=== PATIENT | male | born 1950 | race Caucasian/White ===

== ENCOUNTER 2018-05-17 11:08 | Inpatient (IN) | payer OTHER ==
[2018-05-09 13:15] VITALS: BMI 29.4
--- NOTE | 2018-05-17 12:34 | CONSULT ---
Consultation: REQUESTING PROVIDER: CONSULT REQUEST: We have been asked to medically evaluate this patient for ( specify). HISTORY OF PRESENT ILLNESS: REVIEW OF SYSTEMS: CONSTITUTIONAL: Absent: fever, chills, diaphoresis, generalized weakness, malaise, loss of appetite, weight change HEENT: Absent: rhinorrhea, nasal congestion, throat pain, throat swelling, difficulty swallowing, mouth swelling, ear pain, eye pain, visual changes CARDIOVASCULAR: Absent: chest pain, syncope, palpitations, irregular heart rate, lightheadedness , peripheral edema RESPIRATORY: Absent: cough, shortness of breath, dyspnea with exertion, orthopnea, wheezing, stridor, hemoptysis GASTROINTESTINAL: Absent: abdominal pain, abdominal distension, nausea, vomiting, diarrhea, constipation, melena, hematochezia GENITOURINARY: Absent: dysuria, frequency, urgency, hesitancy, hematuria, flank pain, genital pain MUSCULOSKELETAL: Absent: myalgia, arthralgia, joint swelling, back pain, neck pain SKIN: Absent: rash, itching, pallor HEMATOLOGIC/IMMUNOLOGIC: Absent: easy bleeding, easy bruising, lymphadenopathy, frequent infections ENDOCRINE: Absent: unexplained weight gain, unexplained weight loss, heat intolerance, cold intolerance NEUROLOGIC: Absent: headache, focal weakness or paresthesias, dizziness, unsteady gait, seizure, mental status changes, bladder or bowel incontinence PSYCHIATRIC: Absent: anxiety, depression, suicidal or homicidal ideation, hallucinations. PHYSICAL EXAMINATION Vital Signs - 24 hr 05/17/18 05/17/18 12:08 12:10 Temperature 97.6 F Pulse Rate 79 Respiratory 16 Rate Blood Pressure 130/79 O2 Sat by Pulse 96 Oximetry (%) GENERAL: Awake, alert, and fully oriented, in no acute distress. HEAD: Normal with no signs of trauma. EYES: Pupils equal, round and reactive to light, extraocular movements intact, sclera anicteric, conjunctiva clear. No lid lag. EARS, NOSE, THROAT: Ears normal, nares patent, oropharynx clear without exudates. Moist mucous membranes. NECK: Normal range of motion, supple without lymphadenopathy, JVD, or masses. LUNGS: Breath sounds equal, clear to auscultation bilaterally. No wheezes, and no crackles. No accessory muscle use. HEART: Regular rate and rhythm, normal S1 and S2 without murmur, rub or gallop. ABDOMEN: Soft, nontender, not distended, normoactive bowel sounds, no guarding, no rebound, no masses. No hepatomegaly or splenomegaly. MUSCULOSKELETAL: Normal range of motion at all joints. No bony deformities or tenderness. No CVA tenderness. UPPER EXTREMITIES: 2+ pulses, warm, well-perfused. No cyanosis. No clubbing. Cap refill <2 seconds. No peripheral edema. LOWER EXTREMITIES: 2+ pulses, warm, well-perfused. No calf tenderness. No peripheral edema. NEUROLOGICAL: Cranial nerves II-XII intact. Normal speech. Normal gait. PSYCHIATRIC: Cooperative. Good eye contact. Appropriate mood and affect. SKIN: Warm, dry, normal turgor, no rashes or lesions noted. Laboratory Results - last 24 hr 05/17/18 11:54 POC Glucometer 99 ASSESSMENT/PLAN: Dispo: We will continue to follow the patient. Thank you for this consultative opportunity.
[2018-05-17] MEDS ORDERED: ROPIVACAINE HCL 0.5% 30ML VIAL ONE (15:24)
[2018-05-17] MEDS ORDERED: MIDAZOLAM HCL 2 MG/2 ML SINGLE DOSE VIAL ONE (15:24)
[2018-05-17] MEDS ORDERED: EPINEPHrine/PF 1 MG/1 ML (1:1,000) AMPULE ONE (15:24)
[2018-05-17] MEDS ORDERED: DEXMEDETOMIDINE HCL 200 MCG/2 ML IVPB ONE (16:57)
[2018-05-17] MEDS ORDERED: VANCOMYCIN 1,000 MG VIAL (RESTRICTED TO ID ONLY) ONE (16:57)
[2018-05-17] MEDS ORDERED: ePHEDrine SULFATE 50 MG/1 ML AMPULE ONE (17:42)
[2018-05-17] MEDS ORDERED: PROPOFOL 20 ML ONE ×3 (17:42→19:28)
[2018-05-17] MEDS ORDERED: SUCCINYLCHOLINE CHLORIDE 200 MG/10 ML VIAL ONE (17:42)
[2018-05-17] MEDS ORDERED: oxyCODONE HCL 5 MG TABLET PO PRN ×5 (18:59→21:04)
[2018-05-17] MEDS ORDERED: ONDANSETRON 4 MG/2 ML VIAL IVPUSH PRN ×2 (18:59→20:05)
[2018-05-17] MEDS ORDERED: LACTATED RINGERS SOLUTION 1,000 ML IV SCH ×2 (19:00→20:15)
[2018-05-17] MEDS ORDERED: ceFAZolin SODIUM 1 GM VIAL ONE ×3 (19:04→19:28)
[2018-05-17] MEDS ORDERED: TRANEXAMIC ACID 1000 MG/10 ML VIAL ONE ×2 (19:04→20:04)
[2018-05-17] MEDS ORDERED: DEXAMETHASONE SOD PHOSPHATE 4 MG/1 ML VIAL ONE ×2 (19:04→20:04)
--- NOTE | 2018-05-17 19:29 | CONSULT ---
Consult Consult Specialty:: Hospital Medicine Referred by:: Dr. Goodman Reason for Consultation:: Medical Management - History of Present Illness History of Present Illness: This is a 68 y/o man with a PMHx of DM, HTN, OA. Here for elective surgery s/p R - THR POD#0. Patient is AAOx3, patient reports - History Source History Provided By: Patient Limitations to Obtaining History: No Limitations - Past Medical History Cardio/Vascular: Yes: HTN Endocrine: Yes: Diabetes Mellitus - Past Surgical History Additional Surgical History: Rhinoplasty. Nasal Polyps removed - Alcohol/Substance Use Hx Alcohol Use: No History of Substance Use: reports: None - Smoking History Smoking history: Never smoked - Social History Usual Living Arrangement: With Spouse ADL: Independent History of Recent Travel: No Home Medications - Allergies Allergies/Adverse Reactions: Allergies Allergy/AdvReac Type Severity Reaction Status Date / Time shellfish derived Allergy Verified 05/17/18 12:03 - Home Medications Home Medications: Ambulatory Orders Atorvastatin Ca [Lipitor] 20 mg PO HS 05/09/18 Enalapril Maleate [Vasotec] 20 mg PO DAILY 05/09/18 Gabapentin 300 mg PO TID 05/09/18 Hydrochlorothiazide [Hctz -] 25 mg PO DAILY 05/09/18 Insulin (Novolog 70/30) [Novolog Mix 70/30 Vial] 0 ml SQ TID 05/09/18 Insulin Glargine,Hum.rec.anlog [Basaglar Kwikpen U-100] 60 unit SQ DAILY Tamsulosin HCl [Flomax] 0.4 mg PO HS 05/09/18 Review of Systems - Review of Systems Musculoskeletal: reports: Joint Pain Physical Exam Vital Signs: Vital Signs Temperature 97.6 F 05/17/18 12:08 Pulse Rate 79 05/17/18 12:08 Respiratory Rate 16 05/17/18 12:08 Blood Pressure 130/79 05/17/18 12:08 O2 Sat by Pulse Oximetry (%) 96 05/17/18 12:10 Constitutional: Yes: Well Nourished, No Distress, Calm Eyes: Yes: WNL, Conjunctiva Clear, EOM Intact, PERRL HENT: Yes: WNL, Atraumatic, Normocephalic Neck: Yes: WNL, Supple, Trachea Midline Cardiovascular: Yes: WNL, Regular Rate and Rhythm, S1, S2 Respiratory: Yes: WNL, Regular, CTA Bilaterally Gastrointestinal: Yes: WNL, Normal Bowel Sounds, Soft, Abdomen, Obese Musculoskeletal: Yes: Other (right hip pain) Edema: No Peripheral Pulses WNL: Yes Neurological: Yes: WNL, Alert, Oriented, Cran Nerves II-XII Intact ...Motor Strength: LUE, LLE, RUE Psychiatric: Yes: WNL, Alert, Oriented Problem List - Problems (1) Status post right hip replacement Code(s): Z96.641 - PRESENCE OF RIGHT ARTIFICIAL HIP JOINT
[2018-05-17] MEDS ORDERED: BENZOIN/ALOE VERA/STORAX/TOLU 58 ML BOTTLE ONE (19:32)
[2018-05-17] MEDS ORDERED: ONDANSETRON 4 MG/2 ML VIAL ONE (20:04)
[2018-05-17] MEDS ORDERED: MAGNESIUM HYDROX 2400MG/30ML ORAL SUSPENSION 30 ML CUP PO PRN (20:05)
[2018-05-17] MEDS ORDERED: MAG HYDROX/AL HYDROX/SIMETH 30 ML UNIT-DOSE CUP PO PRN (20:05)
--- NOTE | 2018-05-17 20:15 | PN ---
Progress Note (short form) - Note Progress Note: S/P R TKA POD #0 - Pain control. -DVT PPx: -Chemical: ASA 81 mg po BID x 6 weeks -Mechanical: KRISTAL's, SCD's -Incentive Spirometry. -PT/OT/Rehab, OOB. -WBAT RLE. -f/u am labs. -f/u post-op TOV. -Care per medical hospitalist team. -Discharge planning: f/u [facility] [place] office addictions therapist for appointment: -Will follow. Darian Goodman MD (Orthopaedic Surgery)
--- NOTE | 2018-05-17 20:17 | OP ---
Operative Note - Note: Operative Date: 05/17/18 Pre-Operative Diagnosis: Primary osteoarthritis right hip Operation: Right total hip replacement via direct superior approach Implants: Cecil. Cup - Trident II-Tritanium, 52mm, cluster. Poly - 32mm, neutral. Stem - Accolade II, #3, 127 degree NSA, high offset. Head - Biolox/ Delta Ceramic, 32mm diameter Surgeon: Christiano Goodman Plugger Worker: Darian Goodman Anesthesiologist/WEDDING PLANNER: Chato Yun Anesthesia: Spinal Specimens Removed: Right femoral head Estimated Blood Loss (mls): 75 Fluid Volume Replaced (mls): 1,000 (Crystalloid) Operative Report Dictated: Yes
--- NOTE | 2018-05-17 20:43 | OP ---
Date of Operation: 05/17/2018 Surgeon: Christiano Goodman M.D. Enrollment Specialist: Darian Goodman M.D., Kari Cortes P.A.-C. Pre-Operative Diagnosis: Primary osteoarthritis right hip. Post-Operative Diagnosis: Primary osteoarthritis right hip. Surgical Procedure: Right total hip replacement via Direct Suprior approach. Anaesthesia: Spinal, block. Position: Left lateral decubitus. Incision: Direct superior. Estimated Blood Loss: 75cc. Intravenous Fluid: 1L crystalloid. Specimens: Right femoral head. Drains: None. Complications: None. Urine output: None. Bacteriology: None. Transfusions: None. Closure: #1 Vicryl, 3-0 Biosyn. Indications: The patient was indicated for a right total hip replacement in order to facilitate improved motion and mobilization, and to prevent the complications associated with a sedentary lifestyle. The patient was identified in the holding area by his armband. A long discussion was held with the patient (in the presence of the patients relatives ) regarding the risks, benefits and alternatives of the above named procedure. Risks include but are not limited to: pain, bleeding, infection, damage to surrounding structures (including nerves, blood vessels, skin, ligaments, tendons and bone), wound complications, failure of hardware/implants/reduction, need for further surgery, blood clots, myocardial infarction, pulmonary embolism , cerebrovascular insult, anaesthesia complications, compartment syndrome, limb loss, limp, loss of function, and . Benefits as mentioned above. Alternatives include no surgery. All questions were answered. The patient understood and agreed to the procedure. Informed consent was obtained, witnessed and verified. The patients correct operative limb - that is the right lower extremity - was marked, and the patient was taken to the operating room after being seen by the anesthesia and nursing staff. Procedure: The patient was brought into the operating room, placed on the OR table and secured with a safety strap. Consent and the operative site were again verified with the patient and nursing and anaesthesia staff. Anaesthesia, IV antibiotics, and TXA were then administered without complication. A time out was done, led by me the attending surgeon. The patient was gently turned into the left lateral decubitus position. An axillary roll was placed. A Stulberg hip positioner with well-padded bolsters was used to secure the patient in the lateral decubitus position. The down arm was placed on a well-padded arm board. The up arm was brought across the patients body and placed on 2 pillows. Foam egg crates were placed under the down knee and ankle, and bony prominences were well padded. The operative site was then prepped and draped in the standard sterile fashion. Time out was again done and the case began. Operation: A standard Direct Superior surgical approach was utilized to access the hip joint. With a #10 blade, a skin incision was taken from the posterior-superior corner of the greater trochanter in a posterior-superior direction. This was approximately 10cm in length. Electrocautery was utilized to carry the deep dissection down to the level of the gluteus mic fascia. Hemostasis was assured using electrocautery (bipolar and unipolar). The gluteus mic fascia was incised, and the fibers of gluteus mic were in line with the trajectory of the incision. This confirmed the accuracy of our planned incision based on palpated landmarks and surface anatomy. A Miranda elevator was used to split the distal fibers of gluteus mic, in line with the fibers, just proximal to their insertion into the iliotibial band. Great care was taken not to incise the iliotibial band. Gluteus mic fibers were split proximally using the Miranda elevator until reaching the apex of the wound. Again, hemostasis was assured. The randy-capsular fat pad was exposed utilizing curved handle bar retractors. The arndy-capsular fat pad was excised off the inferior border of the gluteus medius muscle belly, exposing the insertion of the hip short external rotator muscle group. The piriformis tendon was identified and found to be mobile. It was thus retracted superiorly. The superior gemellus muscle was located, found to be robust, and freed from adhesions to the capsule using a 90-degree clamp. This muscle's tendon was then released from its insertion using electrocautery. The tendon was friable and the muscle retracted after release. The sciatic nerve was identified and protected throughout the case. With the superior gemellus muscle released away from its insertion, the hip joint capsule was visualized. Electrocautery was used to perform a capsulotomy and synovial joint fluid was aspirated. Next, the superior leaflet of the capsule was elevated using a Miranda elevator to create separation from the underlying labrum and also to create a plane for later placement of a supra- acetabular retractor. The labrum was excised using electrocautery. The hip was then gently dislocated. A standard femoral neck cut was made using an oscillating saw. A 3/4" osteotome was delivered into the femoral head using mallet strikes. The femoral head was then removed. Anterior, inferior, and supra -acetabular retractors were placed to expose the acetabulum. The pulvinar was excised using electrocautery. Even sized reamers were used to prepare the acetabular bone bed. Healthy blushes of bleeding were observed from the reamed cancellous bone bed. Next, a size 52mm [place] Trident II-Tritanium cup was impacted into position, achieving excellent press-fit. A size 32mm neutral polyethylene liner was then impacted into the cup. Excellent placement of the polyethylene liner, and excellent press fit of the cup were confirmed. Next, attention was turned to femoral preparation. The anterior and supra-acetabular retractors were removed. The cut femoral neck was then exposed using the inferior acetabular retractor around the calcar, and a straight 90-degree retractor to retract gluteus medius. The box-cutter osteotome was used with a mallet to removed bone from the lateral femoral neck. An opening reamer was delivered by hand to find the femoral canal. A lateralizing reamer was used with power to lateralize the proximal entry into the canal, so as to avoid placing the stem into varus. The femoral bone bed was then prepared using broaches with gentle mallet strikes. The tibia was used as a goniometer with which to dial in approximately 5 degrees of stem anteversion. Trial components were assembled and the hip was reduced. The hip was taken through a full range of motion and proved stable throughout this range of motion, including at the extremes of positions of compromised. All trial femoral components were removed. Another 1g of IV Ancef was administered so that the bone bed would be rich with antibiotic at the time of seating of the femoral implant. A [place] Accolade II (127-degree NSA, high offset) #3 stem was then implanted using gentle mallet strikes, diligently matching the prepared degree of stem anteversion. With the stem fully seated, a 32mm diameter, standard length ceramic/Biolox femoral head was then selected and implanted. The hip was once again reduced, and taken through a full range of motion. Stability was once again assured. Leg length was satisfactory. The wounds were copiously irrigated , as they had been regularly throughout the case so as to keep the retracted tissues wet, and in order to flush out wound debris. The capsule was primarily repaired using #1 Vicryl sutures in simple interrupted fashion. The tagged piriformis tendon was released and tied to the posterior-lateral corner of the greater trochanter. The remaining wounds were again irrigated. Hemostasis was assured and the wound was closed primarily using #1 Vicryl sutures. A 3-0 Biosyn suture was used to perform a subcuticular wound closure. A sterile, compressive dressing was applied. The sponge and needle counts were correct at the end of the case and the attending was present and scrubbed throughout the case. The patient was then transferred into a supine position and onto the hospital bed. A standard AP-pelvis x-ray was taken, demonstrating good overall alignment with a well reduced, congruent hip. There was no evidence of subsidence, loosening, or randy-prosthetic fracture. The patient was then was then transferred to the recovery room without incident/complications and in stable condition, having tolerated the procedure well. MD BRENNA Brooks/[id number] MTDD
[2018-05-17] MEDS: INSULIN SLIDING SCALE (NOVOLOG) 1 VIAL SQ SCH (20:59)
[2018-05-17] MEDS: ACETAMINOPHEN 325 MG TABLET (FP) PO SCH (20:59)
[2018-05-17] MEDS ORDERED: GABAPENTIN 300 MG CAPSULE (FP) PO SCH (22:00)
[2018-05-17] MEDS: TAMSULOSIN HCL 0.4 MG CAP PO SCH (22:02)
[2018-05-17] MEDS: ATORVASTATIN CA 20 MG TABLET (FP) PO SCH (22:02)
[2018-05-17] MEDS: ASPIRIN COATED 81 MG TABLET.EC PO SCH (22:02)
[2018-05-17] MEDS: oxyCODONE HCL 10 MG SUSTAINED ACTING TABLET PO SCH (22:02)
[2018-05-17] MEDS: SENNOSIDES/DOCUSATE COMBO (SENNA PLUS) TABLET (UD) PO SCH (22:02)
[2018-05-17] MEDS: GABAPENTIN 300 MG CAPSULE (FP) PO SCH (22:03)
[2018-05-17] MEDS: oxyCODONE HCL 5 MG TABLET PO PRN (23:11)
[2018-05-18] MEDS: ACETAMINOPHEN 325 MG TABLET (FP) PO SCH ×3 (01:27→14:10)
[2018-05-18] MEDS: CEFAZOLIN 2 GM/D5W 2 GM/50 ML ML IVPB SCH ×2 (02:23→11:00)
[2018-05-18] MEDS: oxyCODONE HCL 5 MG TABLET PO PRN ×2 (02:38→14:10)
[2018-05-18] MEDS: INSULIN (LEVEMIR) 100 UNITS/ML UNITS SQ SCH (06:10)
[2018-05-18] MEDS: GABAPENTIN 300 MG CAPSULE (FP) PO SCH ×3 (06:10→21:16)
[2018-05-18] MEDS: INSULIN SLIDING SCALE (NOVOLOG) 1 VIAL SQ SCH ×3 (07:27→18:27)
[2018-05-18 08:16] LABS: HEMOGLOBIN 11.5 GM/dl (11.7-16.9); MCH 29.1 pg (25.7-33.7); MCHC 33.7 g/dl (32.0-35.9); MEAN CELL VOLUME 86.2 fl (80-96); PLATELET COUNT 227 K/MM3 (134-434); RBC 3.95 M/mm3 (4.00-5.60); RDW 12.8 % (11.9-15.9); WHITE BLOOD COUNT 10.3 K/mm3 (4.0-10.8)
--- NOTE | 2018-05-18 08:24 | PN ---
Progress Note (short form) - Note Progress Note: POD #1 s/p right THR. Doing well. sitting in chair at bedside. C/o mild incisional tenderness. Adequate pain control with medications as ordered. No acute events over past 24 hours per RN notes. Tolerating PO diet. Voiding spontaneously. Using his incentive spirometer as directed. Denies n/v/f/c, CP, palpitations, SOB or BEJARANO. Last Vital Signs Temp Pulse Resp BP Pulse Ox 98.6 F 95 H 18 119/64 91 L 05/18/ 04:00 /10/27 04:00 05/18/18 04:00 02 04:00 05/18/18 04:00 CBC, BMP 05/18/18 07:15 Gen: nad LE: Right hip dressing c/d/i. No hematoma. LE with SCDs bilat/soft/non-tender. No edema . Problem List - Problems (1) Status post right hip replacement Assessment/Plan: Assessment/Plan: S/P R FERN POD #1 - Pain control. -DVT PPx: -Chemical: ASA 81 mg po BID x 6 weeks -Mechanical: KRISTAL's, SCD's -Incentive Spirometry. -PT/OT/Rehab, OOB. -WBAT RLE. -No Posterior hip precautions. -f/u am labs. -Care per medical hospitalist team. -Discharge planning: f/u [facility] [place] office onCall for appointment : Above plan discussed with Dr. Christiano Goodman and agrees Code(s): Z96.641 - PRESENCE OF RIGHT ARTIFICIAL HIP JOINT (2) Degenerative joint disease of right hip Code(s): M16.11 - UNILATERAL PRIMARY OSTEOARTHRITIS, RIGHT HIP
[2018-05-18 08:25] LABS: ANION GAP 9 MMOL/L (8-16); BLOOD UREA NITROGEN 26 mg/dl (7-18); CALCIUM 8.2 mg/dl (8.5-10); CHLORIDE 101 mmol/L (98-107); CO2 26 mmol/L (21-32); CREATININE 1.4 mg/dl (0.55-1.3); GLUCOSE,RANDOM 217 mg/dl (74-106); POTASSIUM 3.5 mmol/L (3.5-5.1); SODIUM 136 mmol/L (136-145)
--- NOTE | 2018-05-18 08:52 | PN ---
Physical Exam: SUBJECTIVE: Patient seen and examined. Feeling well, no complaints. OBJECTIVE: Vital Signs Period Temp Pulse Resp BP Sys/Keller Pulse Ox Last 24 Hr 97.4 F-98.6 F 56-95 16-18 90-131/46-79 91-100 GENERAL: The patient is awake, alert, and fully oriented, in no acute distress. HEAD: Normal with no signs of trauma. EYES: PERRL, extraocular movements intact, sclera anicteric, conjunctiva clear. No ptosis. ENT: Ears normal, nares patent, oropharynx clear without exudates, moist mucous membranes. NECK: Trachea midline, full range of motion, supple. LUNGS: Breath sounds equal, clear to auscultation bilaterally, no wheezes, no crackles, no accessory muscle use. HEART: Regular rate and rhythm, S1, S2 without murmur, rub or gallop. ABDOMEN: Soft, nontender, nondistended, normoactive bowel sounds, no guarding, no rebound, no hepatosplenomegaly, no masses. EXTREMITIES: 2+ pulses, warm, well-perfused, no edema. Right hip dressing c/d/ i. No hematoma. NEUROLOGICAL: Cranial nerves II through XII grossly intact. Normal speech, gait not observed. PSYCH: Normal mood, normal affect. SKIN: Warm, dry, normal turgor, no rashes or lesions noted Laboratory Results - last 24 hr 05/17/18 05/17/18 05/18/18 11:54 20:33 06:01 WBC RBC Hgb Hct MCV MCH MCHC RDW Plt Count MPV Sodium Potassium Chloride Carbon Dioxide Anion Gap BUN Creatinine Creat Clearance w eGFR POC Glucometer 99 96 202 Random Glucose Calcium 05/18/18 05/18/18 07:15 07:15 WBC 10.3 RBC 3.95 L Hgb 11.5 L Hct 34.0 L MCV 86.2 MCH 29.1 MCHC 33.7 RDW 12.8 Plt Count 227 MPV 9.0 Sodium 136 Potassium 3.5 Chloride 101 Carbon Dioxide 26 Anion Gap 9 BUN 26 H Creatinine 1.4 H Creat Clearance w eGFR 50.40 POC Glucometer Random Glucose 217 H Calcium 8.2 L Active Medications Generic Name Dose Route Start Last Admin Trade Name Freq PRN Reason Stop Dose Admin Acetaminophen 650 mg 05/17/18 19:00 05/18/18 06:09 Tylenol - PO 02/09/19 18:59 650 mg Q6H HERIBERTO Administration Al Hydroxide/Mg Hydroxide 30 ml 05/17/18 20:05 Mylanta Oral Suspension - PO Q4H PRN DYSPEPSIA Aspirin 81 mg 05/17/18 22:00 05/17/18 22:02 Ecotrin - PO 81 mg BID HERIBERTO Administration Atorvastatin Calcium 20 mg 05/17/18 22:00 05/17/18 22:02 Lipitor - PO 20 mg HS HERIBERTO Administration Enalapril Maleate 20 mg 05/18/18 10:00 Vasotec - PO DAILY [facility] Gabapentin 300 mg 05/17/18 22:00 05/18/18 06:10 Neurontin - PO 300 mg TID HERIBERTO Administration Hydrochlorothiazide 25 mg 05/18/18 10:00 Hctz - PO DAILY [facility] Lactated Ringer's 1,000 mls @ 125 mls/hr 05/17/18 19:00 05/17/18 22:09 Lactated Ringers Solution IV 125 mls/hr ASDIR [facility] Administration Cefazolin Sodium/Dextrose 2 gm in 50 mls @ 100 mls/hr 05/18/18 03:00 02:23 Ancef 2 Gm Premixed Ivpb - IVPB 05/18/18 11:29 100 mls/hr Q8H HERIBERTO Administration Insulin Aspart 1 vial 05/17/18 20:15 05/18/18 07:27 Novolog Vial Sliding Scale - SQ 2 unit TIDAC [facility] Administration Protocol Insulin Detemir 60 units 05/18/18 07:00 05/18/18 06:10 Levemir Vial SQ 60 units ACBK [facility] Administration Magnesium Hydroxide 30 ml 05/17/18 20:05 Milk Of Magnesia - PO PRN PRN CONSTIPATION Multivitamins/Minerals/Vitamin C 1 tab 05/18/18 10:00 Tab-A-Vit - PO DAILY [facility] Ondansetron HCl 4 mg 05/17/18 18:59 Zofran Injection IVPUSH Q6H PRN NAUSEA AND/OR VOMITING Ondansetron HCl 4 mg 05/17/18 20:05 Zofran Injection IVPUSH Q6H PRN NAUSEA Oxycodone HCl 10 mg 05/17/18 22:00 05/17/18 22:02 Oxycontin - PO 05/20/18 19:00 10 mg BID HERIBERTO Administration Oxycodone HCl 5 mg 05/17/18 21:04 Roxicodone - PO Q3H PRN PAIN LEVEL 1-5 Oxycodone HCl 10 mg 05/17/18 21:04 05/18/18 02:38 Roxicodone - PO 10 mg Q3H PRN Administration PAIN LEVEL 6-10 Pantoprazole Sodium 40 mg 05/18/18 10:00 Protonix - PO DAILY HERIBERTO Senna/Docusate Sodium 1 tablet 05/17/18 22:00 05/17/18 22:02 Pericolace - PO 1 tablet BID HERIBERTO Administration Tamsulosin HCl 0.4 mg 05/17/18 22:00 05/17/18 22:02 Flomax - PO 0.4 mg HS HERIBERTO Administration ASSESSMENT/PLAN: 68-year-old male with HTN and IDDM s/p right THR 2. 1. S/p RTHR -POD #1 -Peripoperative abx per surgery -ASA 81mg bid -Pain management -PT 2. HTN -At goal -Hold HCTZ today given Cr 1.4 -Continue Enalapril for now, may need to hold this also if Cr does not improve 3. DM -Continue sliding scale Novolog, 60 units Levemir ACBK -Diabetic diet We will continue to follow the patient. Thank you for the consultative opportunity. Visit type - Emergency Visit Emergency Visit: No - New Patient This patient is new to me today: Yes Date on this admission: 05/18/18 - Critical Care Critical Care patient: No - Discharge Referral Referred to [facility] Med P.C.: No
[2018-05-18] MEDS: oxyCODONE HCL 10 MG SUSTAINED ACTING TABLET PO SCH ×2 (09:11→21:16)
[2018-05-18] MEDS: SENNOSIDES/DOCUSATE COMBO (SENNA PLUS) TABLET (UD) PO SCH ×2 (09:12→21:16)
[2018-05-18] MEDS: PANTOPRAZOLE 40 MG TABLET (FP) PO SCH (09:12)
[2018-05-18] MEDS: ENALAPRIL MALEATE 10 MG TABLET (FP) PO SCH (09:12)
[2018-05-18] MEDS: MULTIVITAMINS (DAILY MVI) TABLET (FP) PO SCH (09:12)
[2018-05-18] MEDS ORDERED: PATIENT'S OWN MEDICATION (NON-FORMULARY) (Enalapril Maleate [Vasotec] 20 MG) PO SCH (10:00)
[2018-05-18] MEDS ORDERED: PATIENT'S OWN MEDICATION (NON-FORMULARY) (Insulin Glargine,Hum.Rec.Anlog [Basaglar Kwikpen SQ SCH (10:00)
[2018-05-18] MEDS: ASPIRIN COATED 81 MG TABLET.EC PO SCH ×2 (10:00→21:15)
[2018-05-18] MEDS ORDERED: HYDROCHLOROTHIAZIDE 25 MG TABLET (FP) PO SCH (10:00)
--- NOTE | 2018-05-18 15:40 | PN ---
Progress Note (short form) - Note Progress Note: ANESTHESIA POSTOP 68 yo male POD#1 s/p FERN Patient doing well. Actively participating in PT. Pain adequately controlled. Satisfied with anesthesia. Tolerating PO VSS, Afebrile Continue current care. Encouraged IS
[2018-05-18] MEDS: TAMSULOSIN HCL 0.4 MG CAP PO SCH (21:15)
[2018-05-18] MEDS: ATORVASTATIN CA 20 MG TABLET (FP) PO SCH (21:16)
[2018-05-19] MEDS: ACETAMINOPHEN 325 MG TABLET (FP) PO SCH ×2 (00:28→06:10)
[2018-05-19] MEDS: oxyCODONE HCL 5 MG TABLET PO PRN (06:10)
[2018-05-19] MEDS: GABAPENTIN 300 MG CAPSULE (FP) PO SCH (06:10)
[2018-05-19 06:51] VITALS: BP 114/56; PULSE 91; TEMP 99.6
[2018-05-19] MEDS: INSULIN SLIDING SCALE (NOVOLOG) 1 VIAL SQ SCH (07:08)
[2018-05-19] MEDS: INSULIN (LEVEMIR) 100 UNITS/ML UNITS SQ SCH (07:08)
[2018-05-19 07:28] LABS: HEMATOCRIT 32.4 % (35.4-49); HEMOGLOBIN 10.5 GM/dl (11.7-16.9); MCH 28.5 pg (25.7-33.7); MCHC 32.4 g/dl (32.0-35.9); MEAN CELL VOLUME 88.1 fl (80-96); PLATELET COUNT 206 K/MM3 (134-434); RBC 3.67 M/mm3 (4.00-5.60); RDW 13.1 % (11.9-15.9); WHITE BLOOD COUNT 10.1 K/mm3 (4.0-10.8)
[2018-05-19 08:12] LABS: ANION GAP 9 MMOL/L (8-16); BLOOD UREA NITROGEN 28 mg/dl (7-18); CALCIUM 7.9 mg/dl (8.5-10); CHLORIDE 99 mmol/L (98-107); CO2 27 mmol/L (21-32); CREATININE 1.4 mg/dl (0.55-1.3); GLUCOSE,RANDOM 204 mg/dl (74-106); POTASSIUM 3.2 mmol/L (3.5-5.1); SODIUM 135 mmol/L (136-145)
--- NOTE | 2018-05-19 08:32 | DS ---
"Physical Exam: SUBJECTIVE: POD #2 s/p right THR. Doing well. sitting in chair at bedside. C/o mild incisional tenderness. Adequate pain control with medications as ordered. No acute events over past 24 hours per RN notes. He is ambulating with PT, Tolerating PO diet, Voiding spontaneously and Using his incentive spirometer as directed. patient Denies n/v/f/c, CP, palpitations, SOB or BEJARANO. . OBJECTIVE: Vital Signs Period Temp Pulse Resp BP Sys/Keller Pulse Ox Last 24 Hr 98.4 F-100 F 87-96 18-19 111-122/52-56 95-98 PHYSICAL EXAM GENERAL: The patient is awake, alert, and fully oriented, in no acute distress. HEAD: Normal with no signs of trauma. EYES:, sclera anicteric, conjunctiva clear. NECK: Trachea midline, LUNGS: unlabored resp on RA, no accessory muscle use. EXTREMITIES: LE: Right hip dressing c/d/i. No hematoma and thigh soft and supple. LE with SCDs bilat/soft/non-tender. + dorsi/plantar flexion b/l. No edema 2+ pulses, warm, well-perfused, no edema. NEUROLOGICAL: Cranial nerves II through XII grossly intact. Normal speech, gait not observed. PSYCH: Normal mood, normal affect. SKIN: Warm, dry, normal turgor, no rashes or lesions noted. LABS Laboratory Results - last 24 hr 05/18/18 05/18/18 05/19/18 12:04 18:24 07:00 WBC 10.1 RBC 3.67 L Hgb 10.5 L Hct 32.4 L MCV 88.1 MCH 28.5 MCHC 32.4 RDW 13.1 Plt Count 206 MPV 9.0 Sodium Potassium Chloride Carbon Dioxide Anion Gap BUN Creatinine Creat Clearance w eGFR POC Glucometer 198 303 Random Glucose Calcium 05/19/18 05/19/18 07:00 07:05 WBC RBC Hgb Hct MCV MCH MCHC RDW Plt Count MPV Sodium 135 L Potassium 3.2 L Chloride 99 Carbon Dioxide 27 Anion Gap 9 BUN 28 H Creatinine 1.4 H Creat Clearance w eGFR 50.40 POC Glucometer 195 Random Glucose 204 H Calcium 7.9 L HOSPITAL COURSE: Date of Admission:05/17/18 The patient was admitted to the Med-Surg Unit after an elective repair of their right hip OA. Now, s/p right FERN. An xray was obtained in the OR and confirmed hardware in good position with no fractures or dislocations. The day of surgery, the patient ambulated the hallways with assistance. Narcotic and non-narcotic pain management control was achieved with an oral and IV approach. Daysi-operative IV ABX were administered. DVT prophylaxis was achieved with SCDs, aspirin and early ambulation. The patient ambulated with Physical Therapy and no services were recommended upon discharge. Narcotic scripts and or muscle relaxants were checked with [facility] GEAR GRINDING MACHINE OPERATOR prior to escibe. The discharge instructions and an oral pain management plan were reviewed with the patient. All questions answered. Above plan discussed with Dr. Goodman and agreed. Date of Discharge: 05/19/18 Minutes to complete discharge: 25 Discharge Summary Reason For Visit: UNILATERAL OA RIGHT HIP Current Active Problems Degenerative joint disease of right hip (Acute) Status post right hip replacement (Acute) Condition: Good - Instructions Diet, Activity, Other Instructions: Dr. Goodman Discharge Instructions for Hip Replacement Post Operative Instructions Physical activity Physical Therapist will come to your home for the first 5 days. You will be set up with outpatient PT at your first post-operative visit. Use assistive devices for ambulation at all times. Weight bearing as tolerated on your surgical side. Wound care Leave your surgical dressing in place. Do not change the dressing until seen by your surgeon in the office. No baths or showers. Do not submerge your incision. Do not apply any ointments or lotions to your incision. Please call the office if your dressing is soiled/dirty or is falling off. Apply Graduated Compression Stockings (TEDS) to both lower extremities-remove daily for hygiene ONLY. Diet There are no dietary restrictions. Eat healthy, high-fiber foods. Drink 6 to 8 glasses of liquid each day. This will assist in keeping your bowels are regular. Pain management Any pain prescription medication ordered should be taken as prescribed for moderate to severe pain. Do not take additional Tylenol while taking Percocet. Posterior Hip Precautions: Do not cross the leg you had surgery on over your other leg. (Do not cross your legs.)Use an elevated toilet seat. Do not sit on low chairs or beds. Take Aspirin 81 mg two times a day for a total of 6 weeks to prevent blood clots. Call Dr. Goodman for any of the following: Severe pain not relieved by medication Fever of 101 or higher Excessive bleeding or drainage on dressing Inability to urinate If you experience chest pain or shortness of breath, please seek emergency care immediately. Please call the office at to confirm your post-op appointment for the week following surgery. Follow up with your primary care physician regarding your renal function ( elevated BUN/creatinine) [place] Prescription Monitoring Program Report was requested by: Kari Chery Barrientos | Reference #: [id number] Disposition: HOME - Home Medications Comprehensive Discharge Medication List: Ambulatory Orders Atorvastatin Ca [Lipitor] 20 mg PO HS 05/09/18 Enalapril Maleate [Vasotec] 20 mg PO DAILY 05/09/18 Gabapentin 300 mg PO TID 05/09/18 Hydrochlorothiazide [Hctz -] 25 mg PO DAILY 05/09/18 Insulin (Novolog 70/30) [Novolog Mix 70/30 Vial] 0 ml SQ TID 05/09/18 Insulin Glargine,Hum.rec.anlog [Basaglar Kwikpen U-100] 60 unit SQ DAILY Tamsulosin HCl [Flomax] 0.4 mg PO HS 05/09/18 Docusate Sodium [Colace -] 100 mg PO BID PRN #30 capsule 05/19/18 Oxycodone HCl/Acetaminophen [Percocet 5-325 mg Tablet] 1 - 2 tab PO Q4H PRN #20 tablet MDD 6 05/19/18 Problem List - Problems (1) Status post right hip replacement Assessment/Plan: POD #2 right FERN doing well. - Pain control. -DVT PPx: -Chemical: ASA 81 mg po BID x 6 weeks -Mechanical: KRISTAL's, SCD's -Incentive Spirometry. -PT/OT/Rehab, OOB. -WBAT RLE. -No Posterior hip precautions. -Care per medical hospitalist team. -Discharge planning: home today -F/u [facility] [place] office onCall for appointment: Above plan discussed with Dr. Christiano Goodman and agrees Code(s): Z96.641 - PRESENCE OF RIGHT ARTIFICIAL HIP JOINT This patient is new to me today: Yes Date on this admission: 05/19/18 Emergency Visit: No Critical Care patient: No - Discharge Referral Referred to [facility] No"
[2018-05-19] MEDS: oxyCODONE HCL 10 MG SUSTAINED ACTING TABLET PO SCH (09:30)
[2018-05-19] MEDS ORDERED: POTASSIUM CHLORIDE TABS 20 MEQ TABLET.ER (FP) PO ONE (09:30)
[2018-05-19] MEDS: ASPIRIN COATED 81 MG TABLET.EC PO SCH (12:02)
[2018-05-19] MEDS: SENNOSIDES/DOCUSATE COMBO (SENNA PLUS) TABLET (UD) PO SCH (12:03)
[2018-05-19] MEDS: ENALAPRIL MALEATE 10 MG TABLET (FP) PO SCH (12:04)
[2018-05-19] MEDS: MULTIVITAMINS (DAILY MVI) TABLET (FP) PO SCH (12:04)
[2018-05-19] MEDS: PANTOPRAZOLE 40 MG TABLET (FP) PO SCH (12:04)
--- NOTE | 2018-05-19 15:45 | PATH ---
Surgical Pathology Report Patient Name: HEATHER FISHER Med. Rec. #: [id number] /Age/Gender: 1950 (Age: 68) / M Account: [id number] Location: [facility] MED-SURG Taken: 05/17/2018 Received: 05/17/2018 Reported: 05/19/2018 Physicians: Christiano Goodman M.D. Specimen(s) Received RIGHT FEMORAL HEAD Clinical History Right hip osteoarthritis Final Diagnosis FEMORAL HEAD, RIGHT, TOTAL HIP REPLACEMENT: DEGENERATIVE JOINT DISEASE. Electronically Signed Kari Nielson M.D. Gross Description Received in formalin, labeled "right femoral head," is a 4.3 x 4.3 x 3.7 cm. femoral head with a 1.0 cm in length portion of femoral neck attached. The margin of resection is smooth. There is a 4.5 cm greatest dimension area of eburnation present. The remaining articular surface is flores-yellow and focally granular. The underlying trabecular bone is yellow and hard. A branch customer service representative section is submitted in one cassette, following decalcification. 05/18/201805/18/2018
== END 2018-05-19 13:08 | disposition home or self-care (01) | DRG 470 ==
LOC: FM/S 11:08
PROVIDERS: ADMIT Orthopaedic Surgery Adult Reconstructive Orthopaedic Surgery; ATTEND Orthopaedic Surgery Adult Reconstructive Orthopaedic Surgery
PROC: 0SR904Z Replacement of Right Hip Joint with Ceramic on Polyethylene Synthetic Substitute, Open Approach (ICD-10-PCS; principal; 2018-05-17 18:24)
DX: M16.11 Unilateral primary osteoarthritis, right hip (principal); E11.9 Type 2 diabetes mellitus without complications; I10 Essential (primary) hypertension; Z79.4 Long term (current) use of insulin
CPT/HCPCS: 36415; 73502-TC-RT; 80048; 82962; 85027; 88304-TC; 88311-TC; 94760; 97116-GP; 97162-GP